=== PATIENT | male | born 1970 | race Caucasian/White ===

== ENCOUNTER 2016-07-15 17:12 | Inpatient (IN) | payer MEDICARE, OTHER ==
--- NOTE | ~2016-07-15 | PN ---
Unit #: [id number] #: [id number] Patient: CHACHA NOGUEIRA [id number] [facility] [address] [place] [address] [id number] I MR#: [id number] NAME: CHACHA NOGUEIRA ROOM: P132 Age: 46 Sex: M Admission Date: 07/15/2016 : 1970 Attending Physician: Rosa Wright M.D. Admitting Physician: Rosa Wright M.D. Primary Care Physician: Primary Care Physician Parvin DARDEN PROGRESS NOTES DATE 07/19/2016 DISCUSSION Mr. Nogueira is a 46-year-old, white male who was seen today and chart was reviewed and case was discussed with the staff. He has been anxious, withdrawn and rather seclusive to himself though has not shown any agitation or aggression and has been taking medications and tolerating it fairly well with no reported side effects. MENTAL STATUS EXAM Middle-aged white male who was casually dressed with fair personal hygiene, appears to be in no acute distress or discomfort. He was awake and alert with intact orientation. His mood was anxious with congruent affect. His speech was slow and restricted to content. He denies any suicidal or homicidal ideations. His insight and judgement remains slightly impaired. TREATMENT PLAN We will continue him on his current treatment protocol. We will monitor his response and make further adjustments as needed. Dictated by... Jena Oseguera/pio TD: 07/21/2016 00:50 JOB #: [id number] PEAADONIS PROGRESS NOTES Page 1 of 1 X Rosa Wright MD PROGRESS NOTE
--- NOTE | ~2016-07-15 | PN ---
Unit #: [id number] #: [id number] Patient: CHACHA NOGUEIRA [id number] [facility] [address] [place] [address] [id number] I MR#: [id number] NAME: CHACHA NOGUEIRA ROOM: 32 Age: 46 Sex: M Admission Date: 07/15/2016 : 1970 Attending Physician: Rosa Wright M.D. Admitting Physician: Rosa Wright M.D. Primary Care Physician: Primary Care Physician Parvin BRICE NOTES DATE OF SERVICE 07/23/2016 DISCUSSION Mr. Nogueira is a 46-year-old white male who was seen today. Chart was reviewed and case was discussed with the staff. She has been doing fairly well with improvement in depression and anxiety. Staff reported that he has been cooperative with the treatment recommendations and has been taking the medications and tolerating them fairly well with no reported side effects. MENTAL STATUS EXAMINATION Middle-aged white male who is casually dressed with fair personal hygiene, appears to be in no acute distress or discomfort. She was awake and alert on interaction with intact orientation. His mood is anxious and depressed with congruent affect. His speech is slow and goal-directed. He denies any suicidal or homicidal ideations and also denies any auditory or visual hallucinations. His insight and judgment remain slightly impaired. TREATMENT PLAN 1. We will continue him on his current medications and treatment protocol. We will monitor his response to medications and make further adjustments as needed. 2. We will continue to follow up. Dictated by... Jena Oseguera/jannet TD: 07/23/2016 11:05 JOB #: [id number] Unit #: [id number] #: [id number] Patient: CHACHA NOGUEIRA PROGRESS NOTES Page 1 of 1 X Rosa Wright MD PROGRESS NOTE
--- NOTE | ~2016-07-15 | HP ---
Unit #: [id number] #: [id number] Patient: PIERO NOGUEIRA [id number] [place] [address] [id number] I MR#: [id number] NAME: PIERO NOGUEIRA ROOM: P132 Age: 46 Sex: M Admission Date: 07/15/2016 : 1970 Attending Physician: Rosa Wright M.D. Admitting Physician: Rosa Wright M.D. Primary Care Physician: Primary Care Physician No HISTORY AND PHYSICAL HISTORY OF PRESENT ILLNESS Piero is a 46 year old admitted to [address] [place] [address] with psychotic behavior. He remains very psychotic, is a poor historian so his history is taken from his chart. PAST MEDICAL HISTORY Nothing significant. PAST SURGICAL HISTORY Nothing reported. ALLERGIES No known drug allergies. SOCIAL HISTORY He denies cigarettes, alcohol and illicit drug use. FAMILY HISTORY Medically noncontributory. REVIEW OF SYSTEMS He does not answer questions appropriately. There are no reports of nausea, vomiting or diarrhea. He has had no cough or increased temperature. CURRENT MEDICATIONS 1. Zyprexa 10 mg q.h.s. 2. Milk of Magnesia p.r.n. 3. Maalox p.r.n. 4. Tylenol p.r.n. 5. Cogentin 1 mg b.i.d. PHYSICAL EXAMINATION GENERAL: Alert, thin, in no apparent distress. VITAL SIGNS: Blood pressure 120/72, heart rate 80, respirations 16, temperature 98.6. WEIGHT: 140. HEIGHT: 5 feet 8 inches. SKIN: Warm and dry without rash or lesion. HEENT: Normocephalic. TMs not viewed. Oral and nasal passages clear. Conjunctivae clear. PERRLA. EOMs intact. NECK: Supple without lymphadenopathy or thyromegaly. HEART: Regular rate and rhythm without murmur. Unit #: [id number] #: [id number] Patient: PIERO NOGUEIRA LUNGS: Clear. ABDOMEN: Soft, nontender. : Not done. EXTREMITIES: No evidence of cyanosis, clubbing or edema. Moves all without focal deficit. NEUROLOGICAL: Unable to complete extended exam. He does move all extremities without focal deficit. Hand remote inpatient coder is equal and gait is normal. IMPRESSION Psychiatric admission. RECOMMENDATIONS PSYCHIATRIC: Per psychiatrist. MEDICAL: See no contraindications to participate in facility's activities. MEDICAL PROGNOSIS Good. MEDICAL CONDITION Stable. Dictated by... Nalini Moore P.A.-C. for Jena Holman/anthony TD: 07/16/2016 17:42 JOB #: [id number] HISTORY AND PHYSICAL Page 1 of 1 X Nalini Moore X HISTORY AND PHYSICAL
--- NOTE | ~2016-07-15 | PN ---
Unit #: [id number] #: [id number] Patient: CHACHA NOGUEIRA [id number] [facility] [address] [place] [address] [id number] I MR#: [id number] NAME: CHACHA NOGUEIRA ROOM: 32 Age: 46 Sex: M Admission Date: 07/15/2016 : 1970 Attending Physician: Rosa Wright M.D. Admitting Physician: Rosa Wright M.D. Primary Care Physician: Primary Care Physician Parvin BRICE NOTES DATE July 21, 2016 DISCUSSION Mr. Nogueira is a 46-year-old white male, who was seen today and chart was reviewed and the case was discussed with the staff. He has been anxious, withdrawn, and rather seclusive to himself. Meanwhile, he has been cooperative with the treatment recommendations and he has been taking the medications and tolerating them fairly well with no reported side effects. MENTAL STATUS EXAMINATION Young white male, who was casually dressed with fair personal hygiene and appears to be in no acute distress or discomfort. He was awake and alert with impaired attention and concentration. His mood is anxious with a congruent affect. His speech is slow and goal-directed. He denies any suicidal or homicidal ideations. His insight and judgment remain slightly impaired. TREATMENT PLAN 1. We will continue him on his current medications and treatment protocol, and will monitor his response to the medications, and make further adjustments as needed. 2. We will continue to followup. Dictated by... Jena Oseguera/luigi TD: 07/21/2016 12:35 JOB #: [id number] Unit #: [id number] #: [id number] Patient: CHACHA NOGUEIRA PROGRESS NOTES Page 1 of 1 X Rosa Wright MD PROGRESS NOTE
--- NOTE | ~2016-07-15 | PA ---
Unit #: [id number] #: [id number] Patient: [facility]IRA [id number] [facility] [address] [place] [address] [id number] I MR#: [id number] NAME: CHACHA NOGUEIRA ROOM: P132 Age: 46 Sex: M Admission Date: 07/15/2016 : 1970 Date of Assessment: 07/15/2016 Attending Physician: Rosa Wright M.D. Admitting Physician: Rosa Wright M.D. Primary Care Physician: Primary Care Physician No PSYCHIATRIC ASSESSMENT DATE OF SERVICE 07/15/2016. IDENTIFYING DATA Mr. Nogueira is a 46-year-old single disabled white male, who is a resident of [place], [place], and is known to us from previous encounter, was transferred to us from [facility]. CHIEF COMPLAINT "I'm feeling manic." HISTORY OF PRESENT ILLNESS Mr. Nogueira is a 46-year-old white male with history of mood disorder, who is known to us from previous encounter, was taken to assessment at the emergency room due to manic behaviors and active symptoms of psychosis and was seen to exhibit disturbed and disorganized speech and altered mental status and was disoriented to time, place, and situation and was unable to participate in most of the assessment due to mental status changes, and states that he has been hospitalized at [facility] and has been diagnosed with paranoid schizophrenia and currently he is unemployed and reports that he is on social security disability for back pain and that he is currently homeless. Reports that he has been locked in [place] and tries to stay with his nephew in [place], but he is having trouble with his family at this time and the patient has listed the address of the [facility] in [place] and reports that he has multiple disks in the neck that have been displaced and that he is in pain and was moving from one subject to another and was also actively having visual hallucination including that of "fought these underwater officers from the [place]." He was unable to comment on the energy level and was seen to be a poor historian and as such, was exhibiting some significant psychosis. When asked if he has been having thoughts of harming anyone, he stated "well, a kind." He went on to talk about people from his past, he hates and discusses issues of race and gender as motivation for anger towards others, but then denied any plan or intent to kill anyone. He was oscillating between laughing and crying and anger during assessment and when exhibiting anger, he would yell or raise his voice and security had to be called in frequent occasions and as such, recommendation for inpatient level of care for safety and stabilization was made and the patient was transferred to us. SUBSTANCE ABUSE HISTORY The patient denies any history of alcohol or drug abuse. Unit #: [id number] #: [id number] Patient: CHACHA NOGUEIRA PAST PSYCHIATRIC HISTORY The patient has had history of inpatient psychiatric hospitalization at [facility] and at [facility]. Review of the medical records indicate that he is supposed to be on Zyprexa and Cogentin, but apparently has been noncompliant with medication and as such, has been decompensating. PAST MEDICAL HISTORY The patient's medical history is significant for degenerative disk disease. ALLERGIES No known medication allergies. PERSONAL AND SOCIAL HISTORY A 46-year-old white male, who reports that he is single, unemployed, and disabled, and has poor social support system. MENTAL STATUS EXAMINATION Middle-aged white male who was casually dressed with fair personal hygiene, appears to be in no acute distress or discomfort. He was awake and alert on interaction with intact orientation to time, place, and person. His mood was anxious and depressed with a congruent affect. His speech was slow and restricted in content. His thought processes were disorganized with some looseness of associations and flight of ideas and paranoid ideations and visual hallucinations. His insight and judgment remain significantly impaired. DIAGNOSTIC IMPRESSION Psychiatric: Chronic paranoid schizophrenia by history. Medical: Degenerative disk disease. Stressors: Moderate psychosocial stressors. TREATMENT PLAN 1. The patient has presented with history of chronic mental illness and has been decompensating and will need inpatient hospitalization for safety and stabilization. We will start him back on his home medications. We will adjust the medications and monitor response. 2. Supportive therapy was provided to the patient. 3. Safe, structured, and nourishing environment will be provided. ESTIMATED LENGTH OF STAY 5 to 7 days. ABILITY TO HELP SELF Limited. WILLINGNESS TO HELP SELF The patient appears to be willing to help self. STRENGTHS 1. Communicative. 2. Cooperative. PROBLEMS 1. Chronic dysphoric symptoms. 2. Poor social support system. DISCHARGE CRITERIA This will be contingent upon the patient's ability to show resolution of Unit #: [id number] #: [id number] Patient: CHACHA NOGUEIRA his depression and anxiety and his ability to stay safe to himself, particularly after discharge from the hospital. Dictated by... Jena Oseguera/joy TD: 07/17/2016 08:23 JOB #: [id number] PSYCHIATRIC ASSESSMENT Page 1 of 1 X Rosa Wright MD X PSYCHIATRIC ASSESSMENT
--- NOTE | ~2016-07-15 | DS ---
Unit #: [id number] #: [id number] Patient: CHACHA NOGUEIRA [id number] [facility] [address] [place] [address] [id number] MR#: [id number] NAME: CHACHA NOGUEIRA ROOM: 32 Age: 46 Sex: M Admission Date: 07/15/2016 : 1970 Discharge Date: 07/24/2016 Attending Physician: Rosa Wright M.D. Primary Care Physician: Primary Care Physician No DISCHARGE SUMMARY IDENTIFYING DATA Mr. Nogueiar is a 46-year-old single disabled white male, who is a resident of [place], [place], and is known to us from previous encounter, was transferred to us from [facility]. DISCHARGE DIAGNOSES Psychiatric: Chronic paranoid schizophrenia by history. Medical: Degenerative disk disease. Stressors: Moderate psychosocial stressors. HISTORY OF PRESENT ILLNESS Please see initial psychiatric evaluation for details. PAST PSYCHIATRIC HISTORY Please see initial psychiatric evaluation for details. PAST MEDICAL HISTORY Please see initial psychiatric evaluation for details. HOSPITAL COURSE The patient was admitted to the adult psychiatric unit at [facility] and was oriented to the hospital environment. Routine p.r.n. medications were initiated, and he was started back on his home medications and initially was seen to be rather withdrawn and disorganized and acutely psychotic with bizarre behavior, though did not show any agitation or aggression; however, he was compliant with the treatment recommendations including medications and as such, was able to show a fairly decent and therapeutic response and therefore, it was decided he will be discharged home and will continue treatment on an outpatient basis. DISCHARGE MEDICATIONS Zyprexa 10 mg at bedtime for psychosis and Cogentin 1 mg b.i.d. for EPS. DISCHARGE CONDITION Stable. PROGNOSIS Fair. Dictated by... Rosa Wright M.D. IAA/modl Unit #: [id number] #: [id number] Patient: CHACHA NOGUEIRA TD: 07/24/2016 07:01 JOB #: [id number] DISCHARGE SUMMARY Page 1 of 1 X Rosa Wright MD X DISCHARGE SUMMARY
--- NOTE | ~2016-07-15 | PN ---
Unit #: [id number] #: [id number] Patient: CHACHA NOGUEIRA [id number] [facility] [address] [place] [address] [id number] I MR#: [id number] NAME: CHACHA NOGUEIRA ROOM: 32 Age: 46 Sex: M Admission Date: 07/15/2016 : 1970 Attending Physician: Rosa Wright M.D. Admitting Physician: Rosa Wright M.D. Primary Care Physician: Primary Care Physician Parvin BRICE NOTES DATE 07/17/2016 DISCUSSION Mr. Nogueira is a 46-year-old white male who was seen today and chart was reviewed and case was discussed with the staff. He has been anxious, withdrawn and rather seclusive to himself. Meanwhile, he has been cooperative with treatment recommendations and has been taking medications and tolerating them fairly well with no reported side effects. MENTAL STATUS EXAMINATION Middle-aged white male who was casually dressed with fair personal hygiene and appears to be in no acute distress or discomfort. He was awake and alert with impaired attention and concentration. His mood was anxious with congruent affect. His speech is slow and restricted in content. He denies any suicidal or homicidal ideations and also denies any auditory or visual hallucinations. His insight and judgement remains slightly impaired. TREATMENT PLAN 1. Will continue on his current medications and treatment protocol. Will monitor his response to the medications and make further adjustments as needed. 2. Will continue to follow up. Dictated by... Jena Oseguera/anthony TD: 07/17/2016 22:51 JOB #: [id number] Unit #: [id number] #: [id number] Patient: CHACHA NOGUEIRA JIMADONIS PROGRESS NOTES Page 1 of 1 X Rosa Wright MD PROGRESS NOTE
--- NOTE | ~2016-07-15 | PN ---
Unit #: [id number] #: [id number] Patient: CHACHA NOGUEIRA [id number] [facility] [address] [place] [address] [id number] I MR#: [id number] NAME: CHACHA NOGUEIRA ROOM: P132 Age: 46 Sex: M Admission Date: 07/15/2016 : 1970 Attending Physician: Rosa Wright M.D. Admitting Physician: Rosa Wright M.D. Primary Care Physician: Primary Care Physician Parvin BRICE NOTES DATE 07/18/2016 DISCUSSION Mr. Nogueira is a 46-year-old white male who was seen today and chart was reviewed and case was discussed with the staff. He has been anxious, withdrawn and rather seclusive to himself and has been exhibiting bizarre behavior. However, he has not shown any agitation or aggression. He has been taking medications and tolerating them fairly well. MENTAL STATUS EXAMINATION Middle-aged white male who was casually dressed with fair personal hygiene and appears to be in no acute distress or discomfort. He was awake and alert with impaired attention and concentration. His mood was anxious with congruent affect. His speech is slow and restricted in content. His thought processes were disorganized with some looseness of associations. His insight and judgement remains significantly impaired. TREATMENT PLAN 1. Will continue his current medications and treatment protocol. Will monitor his response to the medications and make further adjustments as needed. 2. Will continue to follow up. Dictated by... Jena Oseguera/anthony TD: 07/18/2016 20:43 JOB #: [id number] Unit #: [id number] #: [id number] Patient: CHACHA NOGUEIRA PROGRESS NOTES Page 1 of 1 X Rosa Wright MD PROGRESS NOTE
--- NOTE | ~2016-07-15 | PN ---
Unit #: [id number] #: [id number] Patient: CHACHA NOGUEIRA [id number] [facility] [address] [place] [address] [id number] MR#: [id number] NAME: CHACHA NOGUEIRA ROOM: P132 Age: 46 Sex: M Admission Date: 07/15/2016 : 1970 Attending Physician: Rosa Wright M.D. Admitting Physician: Rosa Wright M.D. Primary Care Physician: Primary Care Physician Parvin DARDEN PROGRESS NOTES DATE 07/22/2016 DISCUSSION Mr. Nogueira is a 46-year-old white male who was seen today and chart was reviewed and case was discussed with the staff. He has been anxious, withdrawn, though has not shown any agitation, irritability and has been cooperative with treatment recommendations as he has been taking medications and tolerating them fairly well. MENTAL STATUS EXAMINATION Middle-aged white male who was casually dressed with fair personal hygiene and appears to be in no acute distress or discomfort. He was awake and alert on interaction with intact orientation. His mood was anxious with congruent affect. He denies any suicidal or homicidal ideations. His insight and judgement remains slightly impaired. TREATMENT PLAN 1. Will continue on his current treatment protocol. Will monitor his response to the medications and make further adjustments as needed. 2. Will continue to follow up. Dictated by... Jena Oseguera/anthony TD: 07/22/2016 18:11 JOB #: [id number] Unit #: [id number] #: [id number] Patient: CHACHA NOGUEIRA PROGRESS NOTES Page 1 of 1 X Rosa Wright MD X PROGRESS NOTE
[2016-07-16 09:52] LABS: BASOPHIL# 0.1 X10e3 (0-0.3); BASOPHIL% 0.7 % (0-2.5); EOSINOPHIL# 0.3 X10e3 (0-0.7); EOSINOPHIL% 3.9 % (0.0-7.0); HEMATOCRIT 40.7 % (38.0-50.0); HEMOGLOBIN 13.3 gm/dL (13.0-16.0); LYMPHOCYTE# 2.9 X10e3 (1.0-3.5); LYMPHOCYTE% 31.7 % (17.0-45.0); MEAN CELL VOLUME 89.4 FL (83-96); MEAN CORPUSCULAR HEMOGLOBIN 29.2 PG (28-34); MEAN CORPUSCULAR HGB CONC 32.7 g/dL (30-36); MEAN PLATELET VOLUME 8.7 FL (6.5-11.5); MONOCYTE# 0.7 X10e3 (0-1.0); MONOCYTE% 7.8 % (3.0-12.0); NEUTROPHIL# 5.1 X10e3 (1.5-7.1); NEUTROPHIL% 55.9 % (40-75); PLATELET COUNT 252 X10e3 (140-420); RED BLOOD COUNT 4.55 X10e (3.90-5.60); RED CELL DISTRIBUTION WIDTH 12.4 % (11.0-15.5); WHITE BLOOD COUNT 9.1 X10e3 (4.0-10.5)
[2016-07-16 10:09] LABS: DIFF IND NO
[2016-07-16 10:10] LABS: ALBUMIN SERUM 3.4 g/dL (3.5-5.0); BILIRUBIN,TOTAL 0.5 mg/dL (0.2-2.0); CALCIUM SERUM 8.9 mg/dL (8.4-10.2); CREATININE SERUM 0.8 mg/dL (0.6-1.4); GLOM FILT RATE Estimated 107.2 mL/min (>60); POTASSIUM 4.3 mmol/L (3.5-5.1)
== END 2016-07-24 09:56 | disposition home or self-care (01) | DRG 885 ==
LOC: P2L 17:12 → P1S 21:18
PROVIDERS: Psychiatry & Neurology Psychiatry
DX: F20.0 Paranoid schizophrenia (principal); Z79.899 Other long term (current) drug therapy
CPT/HCPCS: 80053; 85025; J1200; J1630